=== PATIENT | male | born 1990 | race Caucasian/White ===

== ENCOUNTER 2017-02-15 16:12 | Emergency (ER) | payer MEDICAID ==
[~2017-02-15] VITALS: Ht 162.6 cm; Wt 83.8 kg
[~2017-02-15 16:12] MED LIST: SULF1TAB42 PO
[2017-02-15 16:13] VITALS: BP 126/75; PULSE 58; RESP 16; TEMP 97.8; O2SAT 97; Ht 162.6 cm; Wt 83.8 kg
--- OUTSIDE RECORDS SUMMARY | 2017-02-15 16:17 | XMS REPORT | Referral Summary ---
Author Author [facility] Address Unknown Phone Unavailable Care Team Providers Care Risk Consulting Treasury Director Name Role Phone Alvin Shearer Primary Care Physician [phone] Encounter Date(s): 05/22/16 - 05/22/16 [facility] [address] [place] [address] Discharge Diagnosis: Cough Discharge Diagnosis: Osteochondromas Discharge Disposition: 01-Home or Self Care Attending Physician: Amanda Maki MD Admitting Physician: Huan Vasquez DO Vital Signs Most recent to 1 oldest [Reference Range]: Temperature Oral 36.9 degC [35.8-37.3 degC] (05/22/16 11:08 AM) Peripheral Pulse 70 bpm Rate [60-100 bpm] (05/22/16 11:08 AM) Respiratory Rate 20 br/min [14-20 br/min] (05/22/16 11:08 AM) Blood Pressure 122/68 mmHg [90-140/60-90 mmHg] (05/22/16 11:08 AM) Problem List Condition Effective Dates Status Health Status Informant Attention deficit Active hyperactivity disorder (disorder)(Confirmed ) Exostosis Active (disorder)(Confirmed ) Horseshoe Active kidney(Confirmed) Renal 2007 Active stone(Confirmed) 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) OCD(Confirmed) Active Osteochondromas(Conf Active irmed) Urolith Active (finding)(Confirmed) Allergies, Adverse Reactions, Alerts Substance Reaction Severity Status amoxicillin Active amoxicillin-clavulanate Active cefaclor Active Flexeril Hives Active Medications No Known Medications Results No data available for this section Immunizations Vaccine Date Refusal Reason influenza virus vaccine, inactivated 07/25/11 Procedures Procedure Date Related Diagnosis Body Site Multiple ortho procedures for bone disease Social History Social History Type Response Smoking Status Never smoker Assessment and Plan Extracted from: Title: Ambulatory Patient Education Author: Huan Vasquez DO Date: 05/22 Allergy Cough, Adult A cough is a reflex that helps clear your throat and airways. It can help heal the body or may be a reaction to an irritated airway. A cough may only last 2 or 3 weeks (acute) or may last more than 8 weeks (chronic). CAUSES Acute cough: Viral or bacterial infections. Chronic cough: Infections. Allergies. Asthma. Post-nasal drip. Smoking. Heartburn or acid reflux. Some medicines. Chronic lung problems (COPD). Cancer. SYMPTOMS Cough. Fever. Chest pain. Increased breathing rate. High-pitched whistling sound when breathing (wheezing). Colored mucus that you cough up (sputum). TREATMENT A bacterial cough may be treated with antibiotic medicine. A viral cough must run its course and will not respond to antibiotics. Your caregiver may recommend other treatments if you have a chronic cough. HOME CARE INSTRUCTIONS Only take ggvm-kqz-svnnbyb or prescription medicines for pain, discomfort , or fever as directed by your caregiver. Use cough suppressants only as directed by your caregiver. Use a cold steam vaporizer or humidifier in your bedroom or home to help loosen secretions. Sleep in a semi-upright position if your cough is worse at night. Rest as needed. Stop smoking if you smoke. SEEK IMMEDIATE MEDICAL CARE IF: You have pus in your sputum. Your cough starts to worsen. You cannot control your cough with suppressants and are losing sleep. You begin coughing up blood. You have difficulty breathing. You develop pain which is getting worse or is uncontrolled with medicine. You have a fever. MAKE SURE YOU: Understand these instructions. Will watch your condition. Will get help right away if you are not doing well or get worse. This information is not intended to replace advice given to you by your health care provider. Make sure you discuss any questions you have with your health care provider. Document Released: 04/05/2012 Document Revised: 12/30/2012 Document Reviewed: [facility] Patient Information 2016 [facility]. Family Medicine Betty's Exostosis Betty's exostosis is an overgrowth in a portion of the bone in the upper arm ( humerus). It is also called arm exostosis. This condition occurs at the site of repeated injury, usually direct blows. Betty's exostosis is a benign bony reaction to repeated injury. SYMPTOMS Occasionally, there are no symptoms. Pain and tenderness in the area of the exostosis that is worsened by pressure or minor injury. Physical changes noticed in the contour of the arm, either visibly or by touch. If the exostosis breaks (rare), a feeling of a movable piece within the arm may be felt. Bruising (contusion) and swelling with repeated injury. CAUSES Repeated injury (contusions, sprains, or strains) that involve the humerus. Chronic irritation to an already damaged bone area. Occasionally a person may be born with the condition, this is known as osteochondroma. RISK INCREASES WITH: Participation in contact sports, especially those that include blocking with the arms (football, rugby, and martial arts). Poor muscle strength or conditioning. PREVENTION Wear proper protective equipment and ensure correct fit for arm pads. Allow for recovery from any arm injury. Maintain strength and flexibility in the arm. Learn and use correct techniques for the sports activities to reduce the likelihood of injury. PROGNOSIS Upper arm exostosis usually causes no disability when treated appropriately. RELATED COMPLICATIONS Prolonged healing time if activity is resumed before healing is allowed. Proneness to repeated arm injury. Pressure on nearby nerves, blood vessels, muscles, ligaments, tendons, or other soft tissue. Formation of a fluid filled sac (bursa) over the exostosis. This condition has the ability to cause bursitis. Increasing size of exostosis and symptoms due to repeated injury. Risks of surgery, including infection, bleeding, injury to nerves, recurrence of the exostosis, and fracture of the arm. TREATMENT Treatment depends on the severity of the exostosis. For cases with no symptoms, no treatment is necessary. For cases with symptoms, treatment initially consists of medication and ice to control pain and inflammation. One should modify the activities that cause pain. This may include taking a break form sports to allow for healing. Cold and heat treatments may help resolve symptoms. Stretching and strengthening exercises of the arm muscles may also be helpful. The exercises and heat and cold treatments may be done at home or under the direction of a therapist. Occasionally a cortisone injection is used to reduce inflammation in chronic cases. Padding of the arm is usually recommended, when possible, when returning to sports to prevent recurrence. Rarely, surgery to remove the exostosis is recommended, but only if symptoms persist after 6 or more months of conservative treatment. MEDICATION If pain medication is necessary, nonsteroidal anti-inflammatory medications, such as aspirin and ibuprofen, or other minor pain relievers, such as acetaminophen, are often recommended. Do not take pain medication for 7 days before surgery. Prescription pain relievers are usually only prescribed after surgery. Use only as directed and only as much as you need. For chronic cases, corticosteroid injections may be given to reduce inflammation. HEAT AND COLD: Cold treatment (icing) relieves pain and reduces inflammation. Cold treatment should be applied for 10 to 15 minutes every 2 to 3 hours for inflammation and pain and immediately after any activity that aggravates your symptoms. Use ice packs or an ice massage. Heat treatment may be used prior to performing the stretching and strengthening activities prescribed by your caregiver, physical therapist, or market development trainer. Use a heat pack or a warm soak. SEEK MEDICAL CARE IF: Symptoms get worse or do not improve in 2 weeks despite treatment. Any of the following occur after surgery: Pain, numbness, or coldness in the arm and hand. Blue, bedoya, or dark color in the fingernails. Increased pain, swelling, redness, drainage, or bleeding in the surgical area. Signs of infection, including headache, muscle aches, or a general ill feeling with fever. New, unexplained symptoms develop (drugs used in treatment may produce side effects). This information is not intended to replace advice given to you by your health care provider. Make sure you discuss any questions you have with your health care provider. Document Released: 10/08/2006 Document Revised: 12/30/2012 Document Reviewed: [facility] Patient Information 2016 [facility]. No follow up information was provided. Extracted from: Title: Office Visit Shoulder Pain Author: Huan Vasquez DO Date: Assessment/Plan 1.Osteochondromas - States pain is well controled at home, no worsening or increased pain - Xrays performed, copy given to patient, and copies sent to new surgeon - patient will call insurance provider about transportation to appointment in [place], advised to call our office if not able to obtain transportation - Advised to return to clinic if significantly worsening pain or limitation of mobility Ordered: Office Visit Level 3 Est 60790 2.Cough - Patient's cough resolved with supportive care Ordered: Office Visit Level 3 Est [address] Glynn MD I discussed the patient with the Resident/ETHNOGRAPHER/PA/RN/PharmD, reviewed the chart , and concur with the assessment and plan as above.
--- OUTSIDE RECORDS SUMMARY | 2017-02-15 16:17 | XMS REPORT | Referral Summary ---
Author Author [facility] Address Unknown Phone Unavailable Care Team Providers Care Receptionist Clerk Name Role Phone Alvin Shearer Primary Care Physician [phone] Encounter VC Date(s): 04/25/16 - 04/25/16 [facility] [address] [place] [address] Discharge Disposition: 01-Home or Self Care Attending Physician: Jonny Shearer MD Admitting Physician: Jonny Shearer MD Vital Signs No data available for this section Problem List Condition Effective Dates Status Health [...] cefaclor Active Flexeril Hives Active Medications No data available for this section Results No data available for this section Immunizations Vaccine Date Refusal Reason influenza virus vaccine, inactivated 07/25/11 Procedures Procedure Date Related Diagnosis Body Site Multiple ortho procedures for bone disease Social History Social History Type Response Smoking Status Never smoker Assessment and Plan No data available for this section
--- OUTSIDE RECORDS SUMMARY | 2017-02-15 16:17 | XMS REPORT | Continuity of Care Document ---
Author Author [facility] Organization [facility] Address Unknown Phone Unavailable Allergies Active Description Code Type Severity Reaction Onset Reported/Identified Relationship to Patient Clinical Status Yes amoxicillin NKMA N/A N/A 02/19/2014 Yes amoxicillin-clavulanate NKMA N/A N/A 02/19/2014 Yes cefaclor NKMA N/A N/A 02/19/2014 Yes Flexeril NKMA N/A [id number] 06/23/2014 Medications Problems Procedures Results Encounters ACCT No. Visit Date/Time Discharge Status Pt. Type Provider Facility Loc./Unit Complaint [id number] 05/22/2016 10:56:00 2015 23:59:00 DIS Outpatient Amanda Maki I [facility] cough - seery [id number] 04/25/2016 09:03:00 2015 23:59:00 DIS Outpatient Anna Portillo [facility] ck arm/Seery [id number] 04/25/2016 08:47:00 2015 23:59:00 DIS Outpatient Jonny Shearer S [facility] ck arm [id number] 07/20/2015 08:50:00 2014 23:59:00 DIS Outpatient Jonny Shearer S [facility] handicap tags
--- OUTSIDE RECORDS SUMMARY | 2017-02-15 16:17 | XMS REPORT | Referral Summary ---
Author Organization Unknown Address Unknown Phone Unavailable Care Team Providers Care Home Improvement Contractor Name Role Phone Alvin Shearer Primary Care Physician [phone] Encounter VC Date(s): 12/22/14 - 12/22/14 [facility] [place] [address] Discharge Diagnosis: Exostosis (disorder) Discharge Diagnosis: Attention deficit hyperactivity disorder (disorder) Discharge Disposition: Home or Self Care Attending Physician: Jonny Shearer MD Admitting Physician: Jonny Shearer MD Vital Signs Most recent to 1 oldest [Reference Range]: Temperature Oral 36.1 degC [35.8-37.3 degC] (12/22/14 10:39 AM) Peripheral Pulse 70 bpm Rate [60-100 bpm] (12/22/14 10:39 AM) Respiratory Rate 20 br/min [14-20 br/min] (12/22/14 10:39 AM) Blood Pressure 128/74 mmHg [90-140/60-90 mmHg] (12/22/14 10:39 AM) Problem List Condition Effective Dates Status Health Status Informant Attention deficit Active hyperactivity disorder (disorder)(Confirmed ) Exostosis Active (disorder)(Confirmed ) Urolith Active (finding)(Confirmed) Allergies, Adverse Reactions, Alerts Substance Reaction Severity Status amoxicillin Active amoxicillin-clavulanate Active cefaclor Active Flexeril Hives Active Medications No Known Medications Results No data available for this section Immunizations No data available for this section Procedures No data available for this section Social History Social History Type Response Smoking Status Never smoker Assessment and Plan No data available for this section
--- OUTSIDE RECORDS SUMMARY | 2017-02-15 16:17 | XMS REPORT | Referral Summary ---
Author [facility] Address Unknown Phone Unavailable Care Team Providers Care Salesperson Men'S Hats Name Role Phone Alvin Shearer Primary Care Physician [phone] Encounter Date(s): 07/20/15 - 07/20/15 [facility] [address] [place] [address] Discharge Diagnosis: Exostosis (disorder) Discharge Disposition: 01-Home or Self Care Attending Physician: Jonny Shearer MD Admitting Physician: Jonny Shearer MD Vital Signs Most recent to 1 oldest [Reference Range]: Temperature Oral 36.8 degC [35.8-37.3 degC] (07/20/15 9:22 AM) Peripheral Pulse 74 bpm Rate [60-100 bpm] (07/20/15 9:22 AM) Respiratory Rate 18 br/min [14-20 br/min] (07/20/15 9:22 AM) Blood Pressure 112/70 mmHg [90-140/60-90 mmHg] (07/20/15 9:22 AM) Problem List Condition Effective Dates Status [...]
--- OUTSIDE RECORDS SUMMARY | 2017-02-15 16:17 | XMS REPORT | Referral Summary ---
Author Author [facility] Address Unknown Phone Unavailable Care Team Providers Care Rail Car Repairer Name Role Phone Alvin Shearer Primary Care Physician [phone] Encounter Date(s): 04/25/16 - 04/25/16 [facility] [address] [place] [address] Discharge Diagnosis: Osteochondromas Discharge Disposition: 01-Home or Self Care Attending Physician: Anna Portillo MD Admitting Physician: Theron García MD Vital Signs Most recent to 1 oldest [Reference Range]: Temperature Oral 36.7 degC [35.8-37.3 degC] (04/25/16 9:19 AM) Peripheral Pulse 74 bpm Rate [60-100 bpm] (04/25/16 9:19 AM) Respiratory Rate 20 br/min [14-20 br/min] (04/25/16 9:19 AM) Blood Pressure 116/74 mmHg [90-140/60-90 mmHg] (04/25/16 9:19 AM) Problem List Condition Effective Dates Status [...]
--- OUTSIDE RECORDS SUMMARY | 2017-02-15 16:17 | XMS REPORT | Referral Summary ---
Author [facility] Address Unknown Phone Unavailable Care Team Providers Care Sorting Machine Attendant Name Role Phone Alvin Shearer Primary Care Physician [phone] Encounter Date(s): 07/20/15 - 07/20/15 [facility] [address] [place] [address] Discharge Diagnosis: Exostosis (disorder) Discharge Disposition: 01-Home [...]
--- NOTE | 2017-02-15 17:38 | ERPDOC ---
Departure Disposition Decision Date: Feb 15, 2017 Disposition Decision Time: 17:40 Disposition: 01 DISCHARGED HOME, SELF-CARE Impression Impression Impression: Primary Impression: Cellulitis Site of cellulitis: extremity Site of cellulitis of extremity: finger Laterality: left Qualified Codes: L03.012 - Cellulitis of left finger Severity: Moderate Condition: Stable Seen By: Physician only Referrals: TESSY DANG (PCP) Patient Instructions: Cellulitis (ED) Problems/Meds/Labs Reviewed?: Yes Medications reviewed and manag: Yes Additional Instructions: Bactrim DS, one tablet twice daily for 10 days. Please see your primary care provider if symptoms are not improving. Follow up care ordered?: Yes Mental Status: Alert, Oriented Scripts Sulfamethoxazole/Trimethoprim (Bactrim Ds Tablet) 1 Each Tablet 1 TAB PO BID, #20 TAB Take 1 tablet, by mouth, 2 times a day. Prov: MANSI GÓMEZ MD 02/15/17 HPI - Upper Extremity General Chief Complaint: Upper Extremity Pain Stated Complaint: SWOLLEN THUMB Time Seen by MD: 17:35 HPI - Upper Extremity Initial Comments 27-year-old gentleman with redness and pain on left thumb. Patient is developed swelling, pain, redness on his left thumb over the last week. 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 He was told that he may get some infections from these and wonders if this is part of that. No fever , no chills, no pain from this and thus he bumps it. No nausea vomiting not remember injuring the thumb Allergies: Coded Allergies: amoxicillin trihydrate (Verified Allergy, Unknown, 02/15/17) cefaclor (Verified Allergy, Unknown, 02/15/17) cyclobenzaprine HCl (Verified Allergy, Unknown, 02/15/17) potassium clavulanate (Verified Allergy, Unknown, 02/15/17) Past History Past Medical History Male: kidney stones, other Psychological: bipolar Surgical History Surgical History Comments Multiple surgeries to remove bone tumors Family History Family PMH: FOUND: hypertension Vaccines Hx Tetanus, Diptheria, Pertuss: Yes (2006) Social History Smoking Status: Never smoker Record Review Pertinent history updated: Yes Review of Systems Constitutional Constitutional: see HPI Cardiovascular Cardiac: see HPI Musculoskeletal General: see HPI Integumentary Skin: see HPI All other Systems All Other Systems: Reviewed and Negative Physical Exam General General Nourishment: well developed, appears stated age General Body Habitus: well groomed Vitals and Pain First Documented Vital Signs Date Time Temp Pulse Resp B/P Pulse Ox O2 Delivery O2 Flow Rate FiO2 02/15/17 16:13 97.8 58 16 126/75 97 Room Air Weight: Kilograms: 83.800 Height (feet): 5 Height (inches): 4.00 Triage Pain Scale: Normal Exams: Head: Normocephalic w/o trauma Chest/Resp: Clear all ramos, with good airflow, and symmetry bilaterally CV: Regular rate and rhythm, without murmur or gallop, Pulses 2+ all extremities, capillary refill, <2 seconds all ext., no pedal edema noted Neurologic: Patient is alert, and oriented, cranial nerves, motor/sensory/ cerebellar, exams w/o gross deficits, to observation Psychiatric: Patient exhibits, appropriate attention, emotion and affect Musculoskeletal (brief) Comments red swelling on left thumb with some thickening near edge of nail. No drainage. Cap refill <2 sec Differential Diagnoses Considering: Abscess, Fingernail Avulsion, Laceration, Other (cellulitis) Progress Progress Progress Cellulitis to left thumb. This is not ready to be drained, has not coalesced into a manageable mass yet. Start him on Bactrim DS, twice daily due to cephalosporin and penicillin allergies. He is to follow-up with his primary doctor if symptoms are not improving and immediately drained. MANSI GÓMEZ MD Feb 15, 2017 17:38
[2017-02-15] MEDS ORDERED: SULF1TAB42 PO (17:42)
--- NOTE | 2017-02-15 17:45 | NUR ---
DISMISSAL DISMISSAL INSTRUCTIONS WITH RX FOR BACTRIM DS. NO FURTHER QUESTIONS AT THIS TIME. PT LEFT DEPARTMENT AMBUALT[facility]
--- OUTSIDE RECORDS SUMMARY | 2017-02-15 17:50 | XMS REPORT | Continuity of Care Document ---
Author Author [facility] Organization [facility] Address Unknown Phone Unavailable Allergies Active Description Code Type Severity Reaction Onset Reported/Identified Relationship to Patient Clinical Status Yes amoxicillin NKMA N/A N/A 02/19/2014 Yes amoxicillin-clavulanate NKMA N/A N/A 02/19/2014 Yes cefaclor NKMA N/A N/A 02/19/2014 Yes Flexeril NKMA N/A [id number] 06/23/2014 Medications Problems Procedures Results Encounters ACCT No. Visit Date/Time Discharge Status Pt. Type Provider Facility Loc./Unit Complaint [id number] 05/22/2016 10:56:00 2015 23:59:00 DIS Outpatient Amanda Maki I [facility] cough - seery [id number] 04/25/2016 09:03:00 2015 23:59:00 DIS Outpatient Anna Portillo [facility] ck arm/Seery [id number] 04/25/2016 08:47:00 2015 23:59:00 DIS Outpatient Jonny Shearer S [facility] ck arm [id number] 07/20/2015 08:50:00 2014 23:59:00 DIS Outpatient Jonny Shearer S [facility] handicap tags
== END 2017-02-15 17:45 | disposition home or self-care (01) ==
LOC: ED 16:12
DX: L03.012 Cellulitis of left finger (principal)